=== PATIENT | female | born 1975 | race Caucasian/White ===

== ENCOUNTER 2023-07-28 16:18 | Emergency (ER) | payer OTHER ==
[~2023-07-28] VITALS: Wt 63.5 kg
[~2023-07-28 16:18] MED LIST: AMOX875 PO; BENZ100A PO; LEVFLO500 PO; PIOG15; PROZAC; SULTRIDS PO; TRAM50 PO
[2023-07-28] MEDS ORDERED: ONDA4 PO (22:22)
[2023-07-28] MEDS ORDERED: MORP15ER PO (22:22)
[2023-07-28 22:36] VITALS: BP 133/86
[2023-07-29] MEDS ORDERED: ONDA4 PO (11:24)
[2023-07-29] MEDS ORDERED: MORP15ER PO (11:24)
== END 2023-07-28 22:36 | disposition home or self-care (01) ==
LOC: ER 16:18
DX: S82.142A Displaced bicondylar fracture of left tibia, initial encounter for closed fracture (principal); W18.30XA Fall on same level, unspecified, initial encounter; Z88.8 Allergy status to other drugs, medicaments and biological substances; Z88.6 Allergy status to analgesic agent; Z88.5 Allergy status to narcotic agent; Z79.899 Other long term (current) drug therapy; E11.40 Type 2 diabetes mellitus with diabetic neuropathy, unspecified; J44.9 Chronic obstructive pulmonary disease, unspecified
CPT/HCPCS: 29505; 73562-LT; 99283-25; A9270